=== PATIENT | female | born 1985 | race Caucasian/White ===

== ENCOUNTER → 2023-07-10 | Outpatient (CLI) | payer SELFPAY ==
[~2023-07-10] MED LIST: LOVENOX 4040 MG/0.4 SQ; PREVACID 30MG30 MG PO; [UNRECOGNIZED DRUG - CODE] SQ
== END ==
LOC: WSPT 08:56
DX: M54.2 Cervicalgia (principal)

== ENCOUNTER 2023-07-18 08:00 | Outpatient (RCR) | payer OTHER | END 2023-07-21 | disposition home or self-care (01) | LOC: WSPT | DX: M54.2 Cervicalgia (principal) ==

== ENCOUNTER → 2023-07-18 | Outpatient (CLI) | payer SELFPAY | LOC: WSC 09:20 | DX: M54.2 Cervicalgia (principal) ==

== ENCOUNTER → 2023-08-05 | Outpatient (CLI) | payer SELFPAY | LOC: WSPT 09:06 | DX: M54.2 Cervicalgia (principal); Z87.828 Personal history of other (healed) physical injury and trauma ==

== ENCOUNTER → 2023-08-12 | Outpatient (CLI) | payer OTHER | LOC: MHCPAIN 11:20 | DX: M54.2 Cervicalgia (principal); G54.0 Brachial plexus disorders; V89.2XXS Person injured in unspecified motor-vehicle accident, traffic, sequela | CPT/HCPCS: G0463 ==

== ENCOUNTER → 2023-08-16 | Outpatient (CLI) | payer SELFPAY | LOC: WSC 09:27 | DX: M54.2 Cervicalgia (principal); Z87.828 Personal history of other (healed) physical injury and trauma ==